=== PATIENT | male | born 2000 | race Caucasian/White ===

== ENCOUNTER 2022-04-10 13:15 | Emergency (ER) | payer OTHER ==
[2022-04-10] MEDS ORDERED: Ibuprofen 600 MG Tab PO ONE (13:23)
[2022-04-10 14:20] VITALS: BP 124/65; PULSE 85
== END 2022-04-10 14:19 | disposition home or self-care (01) ==
LOC: MW.ED 13:15
DX: M54.6 Pain in thoracic spine (principal); M79.632 Pain in left forearm
CPT/HCPCS: 71046; 72100; 99283; A9270